=== PATIENT | female | born 2000 | race Caucasian/White ===

== ENCOUNTER 2019-01-18 02:33 | Emergency (ER) | payer OTHER ==
[~2019-01-18] VITALS: Ht 165.1 cm; Wt 75.7 kg
== END 2019-01-18 10:04 | disposition home or self-care (01) ==
LOC: ER 02:33
DX: R41.0 Disorientation, unspecified (principal); F10.129 Alcohol abuse with intoxication, unspecified

== ENCOUNTER 2020-06-07 11:36 | Inpatient (IN) | payer OTHER ==
[~2020-06-07] VITALS: Ht 165.1 cm; Wt 73.0 kg
--- NOTE | 2020-06-07 11:45 | NUR ---
PTE FEMENINA ALERTA Y ORIENTADA EN [place] ESFERAS REFIERE VOMITOS X5 Y DOLOR ABDOMINAL DESDE HOY EN LA MANANA.
--- NOTE | 2020-06-07 12:18 | NUR ---
MS B GIOVANNA ORIENTA A PACIENTE SOBRE ORDENES MEDICAS, COLECTA MUESTRAS DE IGNACIO, CANALIZA VENA Y ADMINISTRA MEDICAMENTOS.
--- NOTE | 2020-06-07 16:09 | NUR ---
SE RECIBE PTE DEL TURNO ANTERIOR, ALERTA Y ORIENTADA X 3 ESFERAS, UBICADA EN AREA DE BUTACA. SE OBSERVA CON BUEN PATRON RESPIRATORIOY PIEL TIBIA AL TACTO. IV PATENTE Y HUEY DE EDEMA O ERITEMA CON 0.9% NSS @150ML/HR. PENDIENTE A CONSULTA CON DR ABURTO.
== END 2020-06-10 19:35 | disposition home or self-care (01) | DRG 392 ==
LOC: ER 11:36 → SEC-K 18:53 → SURH 18:53 → SEC-K 22:21 → SURH 06-08 00:12
PROVIDERS: ADMIT Internal Medicine; ATTEND Internal Medicine
PROC: 8E0ZXY6 Isolation (ICD-10-PCS; 2020-06-07)
PROC: BW40ZZZ Ultrasonography of Abdomen (ICD-10-PCS; principal; 2020-06-09)
DX: K52.89 Other specified noninfective gastroenteritis and colitis (principal); E86.0 Dehydration; E87.8 Other disorders of electrolyte and fluid balance, not elsewhere classified; Z03.818 Encounter for observation for suspected exposure to other biological agents ruled out